=== PATIENT | female | born 1975 | race Caucasian/White ===

== ENCOUNTER → 2017-07-03 | Outpatient (CLI) | payer BC ==
[~2017-07-03] MED LIST: PERCOCET 325 MG1 TA2 PO; SEPTRA DS 8001 TAB PO
== END ==
LOC: MC.RAD 10:27
DX: Z12.31 Encounter for screening mammogram for malignant neoplasm of breast (principal)

== ENCOUNTER → 2018-10-07 | Outpatient (CLI) | payer BC | LOC: MC.RAD 08-20 10:40 | DX: Z12.31 Encounter for screening mammogram for malignant neoplasm of breast (principal) ==

== ENCOUNTER → 2023-09-19 | Outpatient (CLI) | payer BC | LOC: MC.RAD 14:00 | DX: N60.11 Diffuse cystic mastopathy of right breast (principal) ==